=== PATIENT | male | born 1965 | race Caucasian/White ===

== ENCOUNTER 2017-08-13 05:21 | Emergency (ER) | payer SELFPAY ==
[2017-08-13] MEDS ORDERED: Tetan/Diph/Pertus SYR(Tdap)* 0.5 ML SYR(BOOSTRIX) use SYR IM ONE (05:40)
[2017-08-13] MEDS ORDERED: oxyCODONE/Acetamin 5/325 MG* TAB PO ONE (05:40)
[2017-08-13] MEDS ORDERED: Lidocaine 2% PF * 5 ML VIAL ONE (05:43)
--- NOTE | 2017-08-13 06:15 | ED ---
Tad Kauffman Tecjoon, scribed for Rafiq Herrera MD on 08/13/17 at 0545 . Laceration/Wound HPI - HPI Summary HPI Summary: This patient is a 52 year old male presenting to [facility] accompanied by female with a chief complaint of right knee laceration since 0300 today. Patient was lowering his truck to load supplies when he fell onto that extremity. Pt denies any other injury in the fall. The pain is rated 8/10 in severity. - History of Current Complaint Stated Complaint: RT KNEE INJURY Time Seen by Provider: 08/13/17 05:32 Hx Obtained From: Patient Mechanism of Injury: Sharp/Blunt Trauma Onset/Duration: Sudden Onset, Still Present Aggravating: Nothing Alleviating: Nothing Timing: Constant Onset Severity: Moderate Current Severity: Moderate Pain Intensity: 8 Pain Scale Used: 0-10 Numeric Associated Signs & Symptoms: Pain - Allergy/Home Medications Allergies/Adverse Reactions: Allergies Allergy/AdvReac Type Severity Reaction Status Date / Time No Known Allergies Allergy Verified 08/13/17 05:27 PMH/Surg Hx/FS Hx/Imm Hx Previously Healthy: Yes Opthamlomology History: Denies: Hx Legally Blind EENT History: Denies: Hx Deafness - Surgical History Surgery Procedure, Year, and Place: LEFT LATERAL MENISCUS REPAIR Infectious Disease History: Yes Infectious Disease History: Reports: History Other Infectious Disease - Staph, C -Diff in the past Denies: Traveled Outside the [place] in Last 30 Days - Family History Known Family History: Positive: Other - no FMH MRSA - Social History Alcohol Use: Rare Hx Substance Use: No Substance Use Type: Reports: None Hx Tobacco Use: No Smoking Status (MU): Never Smoked Tobacco Have You Smoked in the Last Year: No Review of Systems Negative: Fever Positive: Other - right knee laceration All Other Systems Reviewed And Are Negative: Yes Physical Exam - Summary Physical Exam Summary: VITAL SIGNS: Reviewed. GENERAL: Patient is a well-developed and nourished (MALE OR FEMALE) who is lying comfortable in the stretcher. Patient is not in any acute respiratory distress. HEAD AND FACE: No signs of trauma. No ecchymosis, hematomas or skull depressions. No sinus tenderness. EYES: PERRLA, EOMI x 2, No injected conjunctiva, no nystagmus. EARS: Hearing grossly intact. Ear canals and tympanic membranes are within normal limits. MOUTH: Oropharynx within normal limits. NECK: Supple, trachea is midline, no adenopathy, no JVD, no carotid bruit, no c- spine tenderness, neck with full ROM. CHEST: Symmetric, no tenderness at palpation LUNGS: Clear to auscultation bilaterally. No wheezing or crackles. CVS: Regular rate and rhythm, S1 and S2 present, no murmurs or gallops appreciated. ABDOMEN: Soft, non-tender. No signs of distention. No rebound no guarding, and no masses palpated. Bowel sounds are normal. EXTREMITIES: FROM in all major joints. 5cm long laceration over medial aspect of right upper leg. NEURO: Alert and oriented x 3. No acute neurological deficits. Speech is normal and follows commands. SKIN: Dry and warm 5cm long laceration over media aspect of right upper leg. Triage Information Reviewed: Yes Vital Signs On Initial Exam: Initial Vitals Temp Pulse Resp BP Pulse Ox 98.6 F 88 16 154/88 98 08/13/17 05:24 08/13/17 05:24 08/13/17 05:24 08/13/17 05:24 08/13/17 05:24 Vital Signs Reviewed: Yes Procedures - Laceration/Wound Repair 1 Location: Other - right leg Anesthesia: 2.0%, Lido Irrigated w/ Saline (ccs): 100 Laceration/Wound Explored: Other - wound irrigated with saline, no foreign body found. Closure: Tristan #__ - 8. Good alignment. Tristan to be removed in 2 weeks. Diagnostics - Vital Signs Vital Signs Temp Pulse Resp BP Pulse Ox 08/13/17 05:24 98.6 F 88 16 154/88 98 - Laboratory Lab Statement: Any lab studies that have been ordered have been reviewed, and results considered in the medical decision making process. Laceration Repair Course/Dx - Course Course Of Treatment: TThis patient is a 52 year old male presenting to [facility] accompanied by female with a chief complaint of right knee laceration since 0300 today. Patient was lowering his truck to load supplies when he fell onto that extremity. Laceration repair procedure completed. 2% lidocaine used to achieve local anesthesia. Wound irrigated with 100cc saline, no foreign bodies found. 8 tristan were used, good alignment. Tristan to be removed in 2 weeks. The patient is diagnosed with right leg laceration. Patient will be discharged and advised to follow up with PCP. The patient is agreeable with this plan. - Clinical Impression Provider Diagnoses: Laceration of right lower extremity Discharge - Discharge Plan Condition: Fair Disposition: HOME Patient Education Materials: Laceration (ED), Acute Wound Care (ED) Referrals: Tesfaye Mccann MD [Primary Care Provider] - 2 Weeks (Follow up in 2 weeks to remove tristan.) Additional Instructions: RETURN TO EMERGENCY DEPARTMENT FOR ANY NEW OR WORSENING SYMPTOMS The documentation as recorded by the Tad fletcher Tecjoon accurately reflects the service I personally performed and the decisions made by Javier pierre Abdul, MD.
[2017-08-13 06:35] VITALS: BP 140/78
== END 2017-08-13 06:35 | disposition home or self-care (01) ==
LOC: ED 05:21
DX: S81.011A Laceration without foreign body, right knee, initial encounter (principal); W19.XXXA Unspecified fall, initial encounter; Y93.9 Activity, unspecified; Y92.9 Unspecified place or not applicable
CPT/HCPCS: 90471; 90715; 99282; A9270-GY

== ENCOUNTER 2017-08-18 05:55 | Emergency (ER) | payer SELFPAY ==
[2017-08-18] MEDS ORDERED: HYDROcodone/ACETAMIN 5-325 MG* 1 TAB PO ONE (06:31)
[2017-08-18] MEDS ORDERED: Ketorolac INJ* 60 MG/2 ML VIAL IM ONE (06:32)
--- NOTE | 2017-08-18 09:26 | RAD ---
Indication: Swelling post fall. Comparison: March 04, 2005 RIGHT foot radiographs. Technique: AP, mortise, and lateral views RIGHT ankle. Report: Normal articular alignment. No cortical disruption or suspicious trabecular irregularity to suggest fracture. Mild osteoarthritis throughout. Small Achilles tendon insertion bone spur. Mild mid to distal lower leg soft tissue swelling. IMPRESSION: Negative for fracture or articular malalignment at the ankle.
--- NOTE | 2017-08-18 09:29 | RAD ---
Indication: Pain post fall 5 days ago. Laceration to RIGHT leg. Persistent pain, decreased range of motion. Unable to work. Comparison: No relevant prior exams available on the [facility] [place]ACS for comparison. Technique: AP and lateral views RIGHT lower leg. Report: Cutaneous celestine at the anteromedial aspect of the proximal leg. Diffuse soft tissue swelling about the lower leg. No subcutaneous emphysema or conspicuous foreign body. Negative for fracture or malalignment. IMPRESSION: Diffuse soft tissue swelling. Anteromedial cutaneous celestine corresponding with history of recent laceration.
--- NOTE | 2017-08-18 09:33 | RAD ---
Indication: Pain post fall 5 days ago with anteromedial laceration. Decreased range of motion. Previous surgery for lateral meniscus tear. Comparison: No relevant prior exams available on the [facility] [place] PACS. Technique: RIGHT knee: AP, tunnel, crosstable lateral, sunrise views. Report: Infrageniculate anteromedial subcutaneous celestine. Soft tissue swelling most prominent at the anteromedial aspect of the proximal lower leg corresponding with the region of the cutaneous celestine and anterior to the extensor mechanism. Negative for subcutaneous emphysema or conspicuous foreign body. Negative for significant joint effusion. Negative for fracture or malalignment. Minimal osteophytosis. Minimal medial joint space narrowing. IMPRESSION: 1. 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 2. Soft tissue swelling most prominent at the anteromedial aspect of the proximal lower leg corresponding with the region of the cutaneous celestine and anterior to the extensor mechanism.
[2017-08-18 10:09] VITALS: BP 128/78
--- NOTE | 2017-08-18 12:14 | ED ---
Tad Kauffman Tecjoon, scribed for Octaviano Enrique MD on 08/18/17 at 0935 . Progress - Progress Note Progress Note: This patient was signed out by Dr. Bunn to Dr. Enrique, awaiting imaging results and disposition XR Ankle reveals, per radiologist, IMPRESSION: Negative for fracture or articular malalignment at the ankle. ED physician has reviewed this radiology report. XR Lower Extremity reveals, per radiologist, IMPRESSION: Diffuse soft tissue swelling. Anteromedial cutaneous celestine corresponding with history of recent laceration. ED physician has reviewed this radiology report. XR Knee reveals, per radiologist, IMPRESSION: 1. Kellgren and Mike grade 1- 2 osteoarthritis. 2. Soft tissue swelling most prominent at the anteromedial aspect of the proximal lower leg corresponding with the region of the cutaneous celestine and anterior to the extensor mechanism. ED physician has reviewed this radiology report. P/E: right LE no signs or symptoms of compartment syndrome. Course/Dx - Course Course Of Treatment: This patient was signed out by Dr. Bunn to Dr. Enrique, awaiting imaging results and disposition. As the X-Ray results do not show any fractures or contusions, this patient will be discharged home with a diagnosis of knee and lower extremity pain. The patient will be given a work not until next Friday and is advised to follow up with PCP in 3 days. The patient is agreeable with this plan. - Diagnoses Provider Diagnoses: Knee pain, Lower extremity pain The documentation as recorded by the Tad fletcher Tecjoon accurately reflects the service I personally performed and the decisions made by Klaus pierre Walter, MD.
--- NOTE | 2017-08-21 11:02 | ED ---
Helen Kauffman Gabriel scribed for Otilio Bunn MD on 08/18/17 at 0608 . Lower Extremity - HPI Summary HPI Summary: This patient is a 52 year old M presenting to [facility] with a chief complaint of RLE pain since 08/13/17. The patient rates the pain 5/10 in severity. Patient states he has been icing it and elevating it. Symptoms aggravated by bearing weight. Patient reports ibarra and ankle pain. Patient denies crushing trauma and knee pain. Patient fell out of the bagel truck cutting his knee and it was repaired but he has pain and doesnt feel like he can go back to work. - History of Current Complaint Chief Complaint: EDExtremityLower Stated Complaint: RT KNEE INJURY Time Seen by Provider: 08/18/17 06:04 Hx Obtained From: Patient Onset of Pain: Days - 5 Onset/Duration: Still Present Severity Initially: Severe Severity Currently: Moderate Pain Intensity: 5 Pain Scale Used: 0-10 Numeric Timing: Constant Aggravating Factor(s): Standing, Ambulation, Weight Bearing Able to Bear Weight: Yes Related History: Occupational Injury - Allergies/Home Medications Allergies/Adverse Reactions: Allergies Allergy/AdvReac Type Severity Reaction Status Date / Time No Known Allergies Allergy Verified 08/13/17 05:27 PMH/Surg Hx/FS Hx/Imm Hx Endocrine/Hematology History: Denies: Hx Diabetes History: Denies: Hx Acute Renal Failure Sensory History: Denies: Hx Legally Blind, Hx Deafness Opthamlomology History: Denies: Hx Legally Blind - Surgical History Surgery Procedure, Year, and Place: LEFT LATERAL MENISCUS REPAIR Infectious Disease History: No Infectious Disease History: Reports: History Other Infectious Disease - Staph, C -Diff in the past Denies: Traveled Outside the [place] in Last 30 Days - Family History Known Family History: Positive: Other - no FMH MRSA - Social History Alcohol Use: Rare Hx Substance Use: No Substance Use Type: Reports: None Hx Tobacco Use: No Smoking Status (MU): Never Smoked Tobacco Have You Smoked in the Last Year: No Review of Systems Negative: Fever, Chills Negative: Erythema Negative: Sore Throat Negative: Chest Pain Negative: Shortness Of Breath, Cough Negative: Abdominal Pain, Vomiting, Nausea Negative: dysuria, hematuria Musculoskeletal: Negative - knee pain Positive: Other - skin and ankle pain . Negative: Edema Negative: Rash Neurological: Negative - dizziness All Other Systems Reviewed And Are Negative: Yes Physical Exam - Summary Physical Exam Summary: Constitutional: Well-developed, Well-nourished, Alert. (-) Distressed Skin: Warm, Dry HENT: Normocephalic; Atraumatic Eyes: Conjunctiva normal Neck: Musculoskeletal ROM normal neck. (-) JVD, (-) Stridor, (-) Tracheal deviation Cardio: Rhythm regular, rate normal, Heart sounds normal; Intact distal pulses; The pedal pulses are 2+ and symmetric. Radial pulses are 2+ and symmetric. (-) Murmur Pulmonary/Chest wall: Effort normal. (-) Respiratory distress, (-) Wheezes, (-) Rales Abd: Soft, (-) Tenderness, (-) Distension, (-) Guarding, (-) Rebound Musculoskeletal: Extensive bruising just below the knee to the ankle the laceration appears well approximate with celestine compartments are soft no pain with passive ROM tolerates movement of ankle and knee well. I do not suspect compartment syndrome. Lymph: (-) Cervical adenopathy Neuro: Alert, Oriented x3 Psych: Mood and affect Normal Triage Information Reviewed: Yes Vital Signs On Initial Exam: Initial Vitals Temp Pulse Resp BP Pulse Ox 98.0 F 93 20 125/71 98 08/18/17 05:57 08/18/17 05:57 08/18/17 05:57 08/18/17 05:57 08/18/17 05:57 Vital Signs Reviewed: Yes Diagnostics - Vital Signs Vital Signs Temp Pulse Resp BP Pulse Ox 08/18/17 05:57 98.0 F 93 20 125/71 98 - Laboratory Lab Statement: Any lab studies that have been ordered have been reviewed, and results considered in the medical decision making process. Lower Extremity Course/Dx - Diagnoses Provider Diagnoses: Knee pain, Lower extremity pain Discharge - Discharge Plan Condition: Stable Disposition: HOME Discharge Disposition Comment: Patient is signed out to Dr. Enrique, pending disposition, awaiting Xrays Patient Education Materials: Knee Pain (ED) Forms: *Work Release Referrals: Tesfaye Mccann MD [Primary Care Provider] - 3 Days Additional Instructions: As the X-Ray results do not show any fractures or contusions, this patient will be discharged home with a diagnosis of knee pain and lower extremity pain. The patient will be given a work note until next Friday to follow up with PCP. The patient is agreeable with this plan. Return to the ED for persisting or worsening symptoms. The documentation as recorded by the Helen fletcher Gabriel accurately reflects the service I personally performed and the decisions made by me, Otilio Bunn MD.
== END 2017-08-18 10:09 | disposition home or self-care (01) ==
LOC: ED 05:55
DX: M25.561 Pain in right knee (principal); M17.11 Unilateral primary osteoarthritis, right knee; M25.461 Effusion, right knee
CPT/HCPCS: J1885